=== PATIENT | male | born 1950 | race Caucasian/White ===

== ENCOUNTER 2020-11-16 22:28 | Emergency (ER) | payer SELFPAY ==
[~2020-11-16] VITALS: Ht 175.3 cm; Wt 70.3 kg
--- NOTE | 2020-11-16 23:02 | NUR ---
[facility] AND [employer] TO ER BED 11. ALERT, AWAKE AND ABLE TO ANSWER QUESTION. 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 WHEN PT WAS ASKED IF HE IS SUICIDAL HE DENIED AND ANSWERED HE WAS TRYING TO KILL THAT CARS. PT VERBALIZES THAT HE IS BIPOLAR. PT DENIES HOMICIDAL IDEATIONS WELL. WAS AT THE BEDSIDE FOR EVAL. ORDERS RECEIVED, NOTED AND CARRIED OUT. PT IS UNABLE TO URINATED AT THIS TIME. PT PROVIDED WITH WATER.
[2020-11-16 23:08] LABS: HEMOGLOBIN 12.6 g/dL (13.5-17.5); WHITE BLOOD COUNT (AUTO) 7.7 K/uL (4.3-11.0)
[2020-11-16 23:12] LABS: BASOPHILS # (AUTO) 0.1 /CMM (0.0-0.2); BASOPHILS % (AUTO) 0.9 % (0.0-2.0); HEMATOCRIT 37 % (39-51); LYMPHOCYTES # (AUTO) 1.5 /CMM (0.8-4.8); LYMPHOCYTES % (AUTO) 20.2 % (20.0-44.0); MEAN CORPUSCULAR HGB CONC 34 g/dl (31.0-36.0); MEAN CORPUSCULAR VOLUME 93 fL (80-96); MONOCYTES % (AUTO) 13.6 % (2.0-12.0); NEUTROPHILS # (AUTO) 4.5 /CMM (1.8-8.9); NEUTROPHILS % (AUTO) 59.3 % (43.0-81.0); PLATELET COUNT (AUTO) 266 /CMM (150-450); RED BLOOD CELL COUNT(AUTO) 3.99 MIL/uL (4.5-6.0)
[2020-11-16 23:16] LABS: CALCIUM, SERUM 8.5 mg/dL (8.5-10.1); CARBON DIOXIDE 29 mmol/L (21-32); CHLORIDE 107 mmol/L (98-107); CREATININE 0.9 mg/dL (0.6-1.3); GLUCOSE 135 mg/dL (74-106); POTASSIUM 3.8 mmol/L (3.5-5.1); SODIUM SERUM 143 mmol/L (136-145); UREA NITROGEN, BLOOD 22 mg/dL (7-18)
[2020-11-16 23:21] LABS: ALANINE AMINOTRANSFERASE 41 U/L (12-78); ALBUMIN 3.1 g/dL (3.4-5.0); ALCOHOL, BLOOD < 3 mg/dL (0-0); ALKALINE PHOSPHATASE 70 U/L (46-116); ASPARTATE AMINOTRANSFERASE 43 U/L (15-37); BILIRUBIN,DIRECT 0.1 mg/dL (0.0-0.2); BILIRUBIN,TOTAL 0.5 mg/dL (0.2-1.0); TOTAL PROTEIN, SERUM 6.7 g/dL (6.4-8.2)
[2020-11-16 23:29] LABS: ACETAMINOPHEN < 2 ug/ml (10-30)
--- NOTE | 2020-11-16 23:48 | NUR ---
PT UNABLE TO PROVIDE URINE AT THE MOMENT.
--- NOTE | 2020-11-16 23:53 | NUR ---
urine collected and sent to the lab.
[2020-11-16 23:58] LABS: BILIRUBIN,URINE Negative (NEGATIVE); COLOR,URINE YELLOW (YELLOW); LEUKOCYTE ESTERASE ,URINE Negative (NEGATIVE); NITRITE, URINE Negative (NEGATIVE); PROTEIN,URINE 30 mg/dl (NEGATIVE); UGLUCOSE Negative (NEGATIVE)
[2020-11-17 00:05] LABS: BACTERIA,URINE Rare /HPF (None Seen); RBC,URINE NONE SEEN /HPF (0-2); SQUAMOUS EPITHELIAL CELL,UR Few /HPF (None Seen); WBC,URINE NONE SEEN /HPF (0-3)
[2020-11-17] MEDS ORDERED: OLANZAPINE 10 MG VIAL IM ONE ×2 (00:30→00:38)
[2020-11-17 06:03] VITALS: BP 109/69
--- NOTE | 2020-11-17 06:03 | NUR ---
Patient discharged to home in stable condition. Written and verbal after care instructions given. Patient verbalizes understanding of instruction.
== END 2020-11-17 06:03 | disposition home or self-care (01) ==
LOC: ER 22:31
DX: R46.2 Strange and inexplicable behavior (principal); F19.10 Other psychoactive substance abuse, uncomplicated; Z20.822 Contact with and (suspected) exposure to COVID-19; Z59.0 Homelessness
CPT/HCPCS: 36415; 80048; 80076; 80299; 80307; 80320; 81001; 85025; 87426; 96372; 99284; C9803; J3490; G0480